=== PATIENT | female | born 1955 | race Hispanic/Latino ===

== ENCOUNTER 2021-11-10 16:34 | Emergency (ER) | payer OTHER, MEDICARE ==
[~2021-11-10 16:34] MED LIST: BISA5TAB12 PO; CEFD300C3 PO; LACT1CAP58 PO; POLY17PO52 PO
[2021-11-10 16:50] VITALS: BP 145/78
[2021-11-10] MEDS ORDERED: NAPR-1196 PO (17:33)
== END 2021-11-10 18:01 | disposition home or self-care (01) ==
LOC: EDH 16:34
DX: S86.911A Strain of unspecified muscle(s) and tendon(s) at lower leg level, right leg, initial encounter (principal); Z79.899 Other long term (current) drug therapy; V49.49XA Driver injured in collision with other motor vehicles in traffic accident, initial encounter; Y93.89 Activity, other specified; Y92.89 Other specified places as the place of occurrence of the external cause; Y99.8 Other external cause status
CPT/HCPCS: 29505; 73562

== ENCOUNTER → 2025-01-22 | Outpatient (CLI) | payer OTHER ==
[~2025-01-22] MED LIST changes: +BISA-189 PO; -BISA5TAB12 PO; +NAPR-1196 PO
--- NOTE | 2025-01-29 08:41 | HMCIMG ---
CLINICAL INDICATION: Asymptomatic menopausal state COMPARISON: None available TECHNIQUE: Bone densitometry is performed of the lumbar spine and left hip. FINDINGS: Total BMD of left hip is 0.856 g/cm2 with a T-score of -0.8 and Z-score is 0.8. Total BMD of left forearm is 0.491 g/cm2 with a T-score of -1.6 and Z-score is 0.5. FRAX SCORE: The 10 year fracture risk for a major osteoporotic fracture and hip fracture not reported IMPRESSION: 1. Osteopenia of left 2. Normal left hip 3. Would recommend follow-up in 13 months World Health Organization criteria for BMD interpretation classify patients as Normal (T-score at or above -1.0), Osteopenic (T-score between -1.0 and -2.5), or Osteoporotic (T-score at or below -2.5). FRAX SCORE: A. All treatment decisions require clinical judgment and consideration of individual patient factors, including patient preferences, comorbidities, previous drug use, risk factors not captured in the FRAX model (e.g., frailty, falls, vitamin D deficiency, increased bone turnover, interval significant decline in bone density) and possible [id number]-estimation of fracture risk by FRAX. B. In addition, the NOF Guide recommends that FDA-approved medical therapies be considered in postmenopausal women and men age greater than or equal to 50 years with a: i. Hip or vertebral (clinical or morphometric) fracture. ii. T-score of less than or equal to -2.5 at the spine or hip. iii. Ten-year fracture probability by FRAX of greater than or equal to 3% for hip fracture of greater than or equal to 20% for major osteoporotic fracture.
== END | disposition home or self-care (01) ==
LOC: RAH 09:56
PROVIDERS: ATTEND Internal Medicine
DX: M85.832 Other specified disorders of bone density and structure, left forearm (principal); Z78.0 Asymptomatic menopausal state
CPT/HCPCS: 77080